=== PATIENT | male | born 1980 | race Caucasian/White ===

== ENCOUNTER 2018-06-14 19:14 | Emergency (ER) | payer OTHER, SELFPAY ==
[2018-06-14 19:15] VITALS: BP 161/103; PULSE 96; RESP 15; TEMP 35.8; O2SAT 96; BMI 36.4
--- NOTE | 2018-06-14 20:00 | RAD_ITS ---
STUDY: X-RAY - LEFT HAND, ATTENTION FOURTH FINGER REASON FOR EXAM: Male, 37 years old. Staple injury TECHNIQUE: 3 view(s) of the finger were obtained. COMPARISON: None. FINDINGS: There is no evidence of fracture or dislocation. There are no significant degenerative changes. There are no radiodense foreign bodies. RAD/Finger(s) Min 2 Views IMPRESSION: No fracture or dislocation. No radiodense foreign body. Electronically Signed: Zain Dolan, at 20:13 EDT Tel , Service support ,
--- NOTE | 2018-06-14 20:02 | ED.VISSUMM ---
- ER Visit Summary Date of Service: 06/14/18 Chief Complaint: Foreign body left ring finger History of Present Illness: The patient is a 37 M moving furniture when slid and staple went into the left ring finger. Tetanus unknown. No bleeding. Occurred 30 minutes prior to arrival. No paresthesias. Physical Examination: General: Alert and oriented ?3, no acute distress HEENT: Normocephalic, atraumatic. Moist mucosa membranes Neck: supple, nontender. Cardiovascular: Regular rate and rhythm, no murmurs Respiratory: Normal breath sounds, symmetric, no distress Abdomen: Soft, nontender, nondistended Extremities: Left hand ring finger: Foreign body puncture staple radial aspect lateral nailbed. No active bleeding. No paresthesias. Neuro: no focal neurological deficits. Test Results: Post foreign body removal x-ray: No radiopaque foreign bodies Emergency Department Course and Treatment: Foreign body removed with hemostat no difficulties. Post x-ray obtained for evaluation of any residual foreign bodies. Tetanus updated. Treatment Plan: [] Disposition: Discharge Impression: Left ring finger foreign body status post removal This note was generated with [employer] dictation software. It may contain incorrect words, spelling, and punctuation that were not noted in review of the chart prior to signing ED Disposition - Plan for ED Patient: Disposition: Home or Assisted Living Chief Complaint: Other, Pain/Inj Diagnosis: Foreign body of left ring finger Instructions: ED Foreign Body Soft Tissue Removed Referrals: Care Physician,No Primary [Primary Care Provider] - 5-7 Days
[2018-06-14] MEDS: Diphth,Pertuss(Acell),Tet Vac 0.5 ML Vial IM (20:11)
== END 2018-06-14 21:05 | disposition home or self-care (01) ==
PROVIDERS: Emergency Provider Emergency Medicine
DX: S60.455A Superficial foreign body of left ring finger, initial encounter (principal); W45.8XXA Other foreign body or object entering through skin, initial encounter; Y93.E6 Activity, residential relocation; Y92.9 Unspecified place or not applicable; Y99.9 Unspecified external cause status; Z23 Encounter for immunization; I10 Essential (primary) hypertension
CPT/HCPCS: 73140; 90715; 99283

== ENCOUNTER → 2019-06-28 13:54 | Outpatient (CLI) | payer OTHER, SELFPAY ==
--- NOTE | 2019-06-28 13:56 | RAD_ITS ---
STUDY: X-RAY - RIGHT WRIST REASON FOR EXAM: Male, 38 years old. Pain. TECHNIQUE: 3 view(s) of the wrist were obtained. COMPARISON: None. FINDINGS: Normal visualized distal radius and ulna. Normal radiocarpal articulation. Normal distal radioulnar articulation. Normal carpal bones. Normal carpal articulations. Normal carpometacarpal articulation of the thumb. Normal second through fifth carpometacarpal articulations. Normal visualized metacarpal bones. The soft tissue structures are unremarkable. RAD/Wrist min 3 Views IMPRESSION: Normal x-ray examination of the wrist. Electronically Signed: Vladimir Hernandez, at 14:19 EDT , Service support ,
== END ==
PROVIDERS: Referring Provider Physician Assistant; Visit Provider Physician Assistant
DX: S66.911A Strain of unspecified muscle, fascia and tendon at wrist and hand level, right hand, initial encounter (principal)
CPT/HCPCS: 73110

== ENCOUNTER 2019-08-15 16:30 | Outpatient (RCR) | payer OTHER, SELFPAY ==
[2019-07-13 16:26] VITALS: BMI 31.1
--- NOTE | 2019-07-18 15:47 | HP.OTEVAL ---
Patient's Visit Information SARA YI is a 38 year old M, referred to Occupational Therapy by SERA Lindsey, with a diagnosis of Strain fascia tendon at wrist, R medial epicondyllitis. Date of Evaluation: 07/18/19 Occupational Therapist: Desiree Austin - Subjective Subjective: Pt seen for initial occupational therapy evaluation for strain of unspecified muscle fascia and tendon at wrist and hand level, medial epicondylitis R elbow. Pt started to have the pain Jun 24 while working using a tool kranking motion repetitive through out the day. 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 R hand dominent. Pt started wearing R wrist brace WednesdayJun 28. Pt has been icing R wrist to assist with decreasing pain. Pt taking Ibuprofen daily to assist with pain. Indep with BADLs/IADLs. Unable to use crank mechanism at work right now secondary to increase pain to complete. - Pain Right Wrist 3 Pain Intensity Range: 1, 7 R elbow 3 Pain Intensity Range: 1, 6 - Objective Objective/Observation: increase pain with movement of R UE elbow and wrist - ROM Elbow: R 0'/110', L 0/125' Wrist: R 53'/32', L 70'/42' - Strength After School Counselor: R 67#, L 120# Lateral Pinch: R 16#, L 25# - Edema Other: Slight edema noted R medial elbow - Sensation Sensation Comments: Numbness/tingling R digits 4 and 5. - Quick DASH-Disab of Arm,Shoulder& Hand Quick DASH Score: 40.9075 - Goals Goal:: Pt will progress with R vice provost strength by 20# to assist w/ opening containers independently for at work. Goal:: Pt will progress with elbow flexion by 10' to assist w/ functional living tasks by d/c from OT services. Pt will progress w/ R wrist AROM extension by 10' and flexion by 15' to assist w/ fine motor tasks and BADLs independently by d/c from OT services. Goal:: Pt will demo no pain greater than 1/10 with movement by d/c from OT services. Goal:: Pt will be educated on joint protection R UE and energy conservation with good understanding and dmeo 100%x Goal:: Pt will be educated on R UE HEP with good understanding and demo 100%x - Rehabilitation General Assessment: Pt seen for initial OT services secondary to decreased strength of R UE and increased pain with all movement of R wrist and elbow. Pt wearing R wrist brace to assist with decreasing pain and states icing R wrist as needed. Pt states unable to complete all job duties at this time secondasry to increased pain R elbow and wrist with all movment. Pt demo decreased AROM R wrist and elbow. Pt would benefit from direct OT services to increase R UE strength and ROM, decrease pain R elbow and wrist with movement, educate on joint protection, energy conservation and R UE HEP with good understanding. 3x/wk x 4wks 12 visits. Rehabilitation Potential: Good - Anticipated Interventions Anticipated Interventions: A/AAROM/PROM, Strengthening, Edema Control, Massage, Triggerpoint Release, Modalities, Orthoses, Joint Protection/Energy Conservation, Fine Motor Coord/Gustavo, Education re Diagnosis, Education re Self Massage Techniques, Education re Correct Donning Tech,Care&Wearing Sched Comp Garments, Home Program - Visit Plan Frequency: 3x /Week Duration: 4 Weeks General Plan: Pt would benefit from direct OT services to increase R UE strength and AROM, decrease pain R elbow and wrist with movement, educate on joint protection, energy conservation and R UE HEP with good understanding. 3x/wk x 4wks 12 visits. TEXT: Thank you for the opportunity to evaluate your patient. For Medicare and Medicare HMO plans, please review the plan of care and approve it. It will need to be FAXED BACK to us at [phone] for Medicare purposes. Please let me know if there are questions or concerns regarding this plan of care. Physician Signature: Date:
--- NOTE | 2019-08-22 08:07 | HP.OTDCSUM_ITS ---
HP - OT D/C Summary It has been my pleasure to treat SARA YI under orders from SERA Lindsey, for the diagnosis of Strain fascia tendon at wrist, R medial epicondyllitis for a total of 12 visit(s). Please see the following information for a summary of their discharge status. - Objective Objective/Function: feels better - Goals Patient Goals: Regain Strength, Decrease Pain, Return to Work, Decrease Swelling/Stiffness, Use Hand/Wrist/Arm Normally Again, Decrease Tingling/Numbness, Increase ROM, Be More Independent in ADLS, Resume Former Household Responsibilities (Cooking,Cleaning,Yard, etc.), Resume Hobbies Goal:: Pt will progress with R precision filer hand strength by 20# to assist w/ opening containers independently for at work. Goal:: Pt will progress with elbow flexion by 10' to assist w/ functional living tasks by d/c from OT services. Pt will progress w/ R wrist AROM extension by 10' and flexion by 15' to assist w/ fine motor tasks and BADLs independently by d/c from OT services. Goal:: Pt will demo no pain greater than 1/10 with movement by d/c from OT services. Goal:: Pt will be educated on joint protection R UE and energy conservation with good understanding and dmeo 100%x Goal:: Pt will be educated on R UE HEP with good understanding and demo 100%x - Plan Plan: d/c OT services return to - D/C Information Discharge Comments: Pt has made limited progress with OT goals. Pt continues to have increased pain R wrist and elbow. Pt has been educated on use of modalities and HEP with good understanding. Pt did progress w/ R elbow AROM and precision filer hand strength R hand progressed to 80#. Pt continues to demo decreased AROM R wrist flexion/extension 45/20 with increased edema and pain. Rec return back to . Have communicated with office. Pt demo good understanding. D/C OT services at this time. If there are questions or concerns regarding this patient's occupational therapy, please fell free to call me at [phone]. Thank you for the referral of this patient. Sincerely, Desiree Austin
== END 2019-08-15 19:00 | disposition home or self-care (01) ==
LOC: OT 16:30
PROVIDERS: Referring Provider Physician Assistant; Visit Provider Physician Assistant
DX: S66.911D Strain of unspecified muscle, fascia and tendon at wrist and hand level, right hand, subsequent encounter (principal); M77.01 Medial epicondylitis, right elbow
CPT/HCPCS: 97035; 97110; 97140; 97165; 97166; 97530

== ENCOUNTER 2019-09-18 09:15 | Emergency (ER) | payer OTHER, SELFPAY ==
[2019-08-28 14:53] VITALS: BMI 31.1
[2019-09-18 09:15] VITALS: BP 142/77; PULSE 112; RESP 17; TEMP 36.8; O2SAT 96; BMI 30.9
--- NOTE | 2019-09-18 09:23 | ED.DCSUM_ITS ---
- ER Visit Summary Date of Service: 09/18/19 Chief Complaint: Right index finger laceration History of Present Illness: The patient is a 38 M who presents with a laceration to his right index finger that occurred today. Patient was using a microtome when the blade slipped and cut his finger. Patient denies any paresthesias or weakness. Patient denies any pain. Patient states his last tetanus was 1 year ago. Patient is right-hand dominant. Patient denies any other symptoms. Physical Examination: Vital signs are stable. Patient is afebrile. Patient is in no acute distress. Skin is warm and dry. There is a 1 cm curvilinear laceration on the ulnar aspect of the middle phalanx of the right index finger. There is moderate bleeding of the laceration. There is mild gapping of the wound margins. There is full range of motion of the MP, PIP, and DIP joints. Strength is 5/5 in flexion and extension of the MP, PIP, and DIP joints. There are no sensory deficits. Capillary refill is less than 2 seconds in all digits. Emergency Department Course and Treatment: The right index finger was cleaned and anesthetized 1% plain lidocaine via digital block. The wound was irrigated with copious amounts of normal saline. The wound was explored. There are no foreign bodies or tendon lacerations. The wound was closed with 3 simple interrupted #5-0 nylon sutures under sterile technique. Bacitracin dressing was applied. Patient tolerated procedure well. Patient was instructed to follow-up with his primary care physician in 5 to 7 days. Patient understood and was agreeable with the plan. All questions were answered. Disposition: Discharge home Impression: Right index finger laceration This note was generated with [employer] dictation software. It may contain incorrect words, spelling, and punctuation that were not noted in review of the chart prior to signing ED Disposition - Plan for ED Patient: Disposition: Home or Assisted Living Diagnosis: Laceration of right index finger w/o foreign body w/o damage to nail Instructions: LACERATION, Hand Referrals: Care Physician,No Primary [Primary Care Provider] - Nico Edwards MD [NON-STAFF] - 7 Days for suture removal
[2019-09-18] MEDS: BACITRACIN 15 GM Tube 1 APPLIC TOPICAL (10:14)
== END 2019-09-18 10:16 | disposition home or self-care (01) ==
LOC: ED 09:37
PROVIDERS: Emergency Provider Emergency Medicine
DX: S61.210A Laceration without foreign body of right index finger without damage to nail, initial encounter (principal); W26.8XXA Contact with other sharp object(s), not elsewhere classified, initial encounter; Y93.9 Activity, unspecified; Y92.89 Other specified places as the place of occurrence of the external cause; Y99.9 Unspecified external cause status; Z72.0 Tobacco use
CPT/HCPCS: 12001; 99283